=== PATIENT | female | born 1995 | race Caucasian/White ===

== ENCOUNTER → 2021-09-06 20:59 | Observation (INO) | END | disposition home or self-care (01) | LOC: 1NENULAB | PROVIDERS: ADMIT Obstetrics & Gynecology; ATTEND Obstetrics & Gynecology ==

== ENCOUNTER 2021-09-13 03:54 | Inpatient (IN) ==
[2021-09-13] MEDS ORDERED: *HR* Nalbuphine 10 MG/ML AMPUL IV PRN (04:09)
[2021-09-13] MEDS ORDERED: Azithromycin 500 MG in 0.9 % Sodium Chloride 250 ML IVPB PRN (04:09)
[2021-09-13] MEDS ORDERED: Naloxone 0.4 MG/ML INJ IVP PRN (04:09)
[2021-09-13] MEDS ORDERED: Metoclopramide 10 MG/2 ML VIAL IVP PRN (04:09)
[2021-09-13] MEDS ORDERED: miSOPROStoL 25 MCG TABLET PO PRN (04:09)
[2021-09-13] MEDS ORDERED: CeFAZolin 2,000 MG/120 ML BAG IVPB ONE (04:09)
[2021-09-13] MEDS ORDERED: Famotidine 20 MG/2 ML VIAL IVP PRN (04:09)
[2021-09-13] MEDS ORDERED: Ondansetron 4 MG/2 ML VIAL IVP PRN (04:09)
[2021-09-13] MEDS ORDERED: Oxytocin 30 UNIT/503 ML BAG IVC SCH (04:15)
[2021-09-13] MEDS ORDERED: Penicillin G Potassium 5,000,000 UNIT in 0.9 % Sodium Chloride Mini Bag 100 ML IVPB ONE (04:30)
[2021-09-13 05:19] LABS: Basophils % 0.2 %; Eosinophils # 0.1 K/mcL (0.0-0.6); Eosinophils % 0.9 %; Hematocrit 34.2 % (35.3-44.9); Hemoglobin 11.2 g/dL (11.5-15.4); Immature Granulocytes % 0.2 % (0-4); Lymphocytes # 2.4 K/mcL (0.6-4.6); Lymphocytes % 27.7 %; Mean Corpuscular HGB Conc 32.7 g/dL (31.6-35.5); Mean Corpuscular Hemoglobin 28.2 pg (28.0-33.3); Mean Corpuscular Volume 86.1 fL (83.0-100.0); Mean Platelet Volume 11.2 fL (9.4-12.4); Monocytes # 0.5 K/mcL (0.0-1.3); Monocytes % 5.5 %; Neutrophils # 5.7 K/mcL (1.6-8.9); Platelet Count 316 K/mcL (140-400); Red Blood Count 3.97 M/mcL (3.82-4.97); Red Cell Distribution Width 14.3 % (11.5-14.5); Segmented Neutrophils % 65.5 %; White Blood Count 8.8 K/mcL (4.3-11.1)
[2021-09-13 05:30] LABS: Amphetamine Screen,Urine Negative ng/mL (Cutoff=1000); Barbiturate Screen,Urine Negative ng/mL (Cutoff=200); Benzodiazepines Screen,Urine Negative ng/mL (Cutoff=200); Cannabinoid Screen,Urine Negative ng/mL (Cutoff = 50); Cocaine Screen,Urine Negative ng/mL (Cutoff= 300); Opiate Screen,Urine Negative ng/mL (Cutoff=300); Phencyclidine Screen,Urine Negative ng/mL (Cutoff=25)
[2021-09-13 05:30] LABS: Influenza A PCR Negative (Negative); Influenza B PCR Negative (Negative); Resp. Syncytial Virus PCR Negative (Negative); SARS-CoV-2 by PCR (In House) Negative (Negative)
[2021-09-13] MEDS: Ringers Solution, Lactated 1,000 ML IVC SCH ×3 (05:44→18:44)
[2021-09-13] MEDS: Penicillin G Potassium 2,500,000 UNIT/105 ML MLS IVPB SCH ×4 (10:03→22:21)
[2021-09-13] MEDS ORDERED: EPHEDrine 50 MG/ML VIAL IVP PRN (13:20)
[2021-09-13] MEDS ORDERED: *HR* FentaNYL (PF) 100 MCG/2 ML VIAL EP ONE (13:20)
[2021-09-13] MEDS ORDERED: Ropivacaine/PF 0.2% 20 ML VIAL EP ONE (13:20)
[2021-09-13] MEDS ORDERED: *HR* FentaNYL (PF) 100 MCG/2 ML VIAL ONE (13:24)
[2021-09-13] MEDS ORDERED: Ropivacaine/PF 0.2% 20 ML VIAL ONE (13:24)
[2021-09-13] MEDS: Epidural Premix (fent/bupiv) 110 ML EP SCH ×2 (14:05→20:44)
[2021-09-13] MEDS ORDERED: *HR* Ropivacaine/PF 0.5% 20 ML VIAL ONE (19:33)
[2021-09-14] MEDS ORDERED: Lanolin 7 G OINT...G. TP PRN (01:57)
[2021-09-14] MEDS ORDERED: Measles/Mumps/Rubella Vacc 0.5 ML VIAL SQ PRN (01:57)
[2021-09-14] MEDS ORDERED: Rho Immune Globulin 1,500 UNIT SYRINGE IM PRN (01:57)
[2021-09-14] MEDS ORDERED: Ondansetron ODT 4 MG TAB.RAPDIS SL PRN (01:57)
[2021-09-14] MEDS ORDERED: Benzocaine/Menthol 56 GM AEROSOL SPRAY TP PRN (01:57)
[2021-09-14] MEDS ORDERED: Oxytocin 30 UNIT/503 ML BAG IVC SCH (02:00)
[2021-09-14 04:50] LABS: Basophils % 0.2 %; Eosinophils % 0.2 %; Hematocrit 29.5 % (35.3-44.9); Hemoglobin 9.8 g/dL (11.5-15.4); Immature Granulocytes % 0.4 % (0-4); Lymphocytes # 1.4 K/mcL (0.6-4.6); Lymphocytes % 14.9 %; Mean Corpuscular HGB Conc 33.2 g/dL (31.6-35.5); Mean Corpuscular Hemoglobin 28.4 pg (28.0-33.3); Mean Corpuscular Volume 85.5 fL (83.0-100.0); Mean Platelet Volume 11.2 fL (9.4-12.4); Monocytes # 0.5 K/mcL (0.0-1.3); Monocytes % 5.3 %; Neutrophils # 7.5 K/mcL (1.6-8.9); Platelet Count 280 K/mcL (140-400); Red Blood Count 3.45 M/mcL (3.82-4.97); White Blood Count 9.5 K/mcL (4.3-11.1)
[2021-09-14] MEDS: Prenatal Vit/FA 1 EACH TABLET PO SCH (08:39)
[2021-09-14] MEDS: Acetaminophen 325 MG TABLET PO SCH ×3 (08:39→21:39)
[2021-09-14 20:34] VITALS: PULSE 92; TEMP 98.3; O2SAT 100
[2021-09-14] MEDS: Ibuprofen 600 MG TABLET PO SCH (22:59)
[2021-09-15] MEDS: Acetaminophen 325 MG TABLET PO SCH ×2 (02:57→08:54)
[2021-09-15] MEDS: Ibuprofen 600 MG TABLET PO SCH ×2 (04:51→11:58)
[2021-09-15 06:52] VITALS: BP 123/78
[2021-09-15] MEDS: Prenatal Vit/FA 1 EACH TABLET PO SCH (08:54)
== END 2021-09-15 13:40 | disposition home or self-care (01) | DRG 807 ==
LOC: 1NENULAB 03:54 → 1NENUOBS 09-14 02:34
PROVIDERS: ADMIT Obstetrics & Gynecology; ATTEND Obstetrics & Gynecology